=== PATIENT | female | born 1980 | race Caucasian/White ===

== ENCOUNTER → 2023-04-17 | Outpatient (CLI) | payer OTHER ==
[2023-04-17 08:47] LABS: BASOPHILS # (AUTO) 0.02 K/uL (0.00-0.20); BASOPHILS % (AUTO) 0.3 % (0.0-5.0); EOSINOPHILS # (AUTO) 0.12 K/uL (0.00-0.70); EOSINOPHILS % (AUTO) 2.1 % (0.0-8.0); HEMATOCRIT 38.6 % (36-48); IMMATURE GRANULOCYTE ABSOLUTE 0.02 K/uL (0-1); LYMPHOCYTES # (AUTO) 1.8 K/uL (1.0-4.8); LYMPHOCYTES % (AUTO) 31.2 % (21.0-51.0); MEAN CORPUSCULAR HEMOGLOBIN 32.3 pg (27.0-33.0); MEAN CORPUSCULAR HGB CONC 32.9 g/dL (32.0-36.0); MEAN CORPUSCULAR VOLUME 98.2 fL (79-99); MONOCYTES # (AUTO) 0.5 K/uL (0.1-1.0); MONOCYTES % (AUTO) 8.3 % (3.0-13.0); NEUTROPHILS # (AUTO) 3.4 K/uL (1.8-7.7); NEUTROPHILS % (AUTO) 57.8 % (40.0-77.0); PLATELET COUNT (AUTO) 350 K/uL (130-400); RED BLOOD CELL COUNT(AUTO) 3.93 MIL/uL (4.00-5.50); RED CELL DISTRIBUTION WIDTH 12.4 % (11.0-15.5); WHITE BLOOD COUNT (AUTO) 5.8 K/uL (4.8-10.8)
[2023-04-17 09:18] LABS: ALBUMIN 3.9 g/dL (3.5-5.0); BILIRUBIN,TOTAL 0.3 mg/dL (0.2-1.0); CREATININE 0.8 mg/dL (0.5-1.5); TOTAL PROTEIN, SERUM 7.1 g/dL (6.0-8.3)
== END | disposition home or self-care (01) ==
LOC: LAB 08:03
PROVIDERS: ATTEND Internal Medicine
DX: Z13.220 Encounter for screening for lipoid disorders (principal); Z00.00 Encounter for general adult medical examination without abnormal findings; I10 Essential (primary) hypertension
CPT/HCPCS: 36415; 80053; 80061; 85025

== ENCOUNTER → 2023-04-22 | Outpatient (CLI) | payer OTHER | END | disposition home or self-care (01) | LOC: LAB 15:19 | PROVIDERS: ATTEND Internal Medicine | DX: Z01.419 Encounter for gynecological examination (general) (routine) without abnormal findings (principal) | CPT/HCPCS: 88175 ==

== ENCOUNTER → 2023-08-17 | Outpatient (CLI) | payer OTHER | END | disposition home or self-care (01) | LOC: RAH 15:21 | PROVIDERS: ATTEND Internal Medicine | DX: Z12.31 Encounter for screening mammogram for malignant neoplasm of breast (principal) | CPT/HCPCS: 77067 ==

== ENCOUNTER → 2024-04-20 | Outpatient (CLI) | payer OTHER ==
[2024-04-21 08:30] LABS: BASOPHILS # (AUTO) 0.03 K/uL (0.00-0.20); BASOPHILS % (AUTO) 0.5 % (0.0-5.0); EOSINOPHILS # (AUTO) 0.13 K/uL (0.00-0.70); EOSINOPHILS % (AUTO) 2.1 % (0.0-8.0); HEMATOCRIT 38.7 % (36-48); IMMATURE GRANULOCYTE ABSOLUTE 0.01 K/uL (0-1); LYMPHOCYTES # (AUTO) 1.5 K/uL (1.0-4.8); LYMPHOCYTES % (AUTO) 25.2 % (21.0-51.0); MEAN CORPUSCULAR HEMOGLOBIN 32.3 pg (27.0-33.0); MEAN CORPUSCULAR HGB CONC 32.3 g/dL (32.0-36.0); MONOCYTES # (AUTO) 0.5 K/uL (0.1-1.0); MONOCYTES % (AUTO) 7.4 % (3.0-13.0); NEUTROPHILS # (AUTO) 3.9 K/uL (1.8-7.7); NEUTROPHILS % (AUTO) 64.6 % (40.0-77.0); PLATELET COUNT (AUTO) 323 K/uL (130-400); RED BLOOD CELL COUNT(AUTO) 3.87 MIL/uL (4.00-5.50); WHITE BLOOD COUNT (AUTO) 6.1 K/uL (4.8-10.8)
[2024-04-21 08:54] LABS: ALBUMIN 3.7 g/dL (3.5-5.0); BILIRUBIN,TOTAL 0.5 mg/dL (0.2-1.0); CREATININE 0.8 mg/dL (0.5-1.0); HEMOGLOBIN A1C 5.4 % (4.0-6.0); MAGNESIUM 1.7 mg/dL (1.80-2.40); POTASSIUM 4.3 mmol/L (3.5-5.1); THYROID STIMULATING HORMONE 1.54 uIU/mL (0.36-3.74); TOTAL PROTEIN, SERUM 6.7 g/dL (6.0-8.3)
== END | disposition home or self-care (01) ==
LOC: RAH 08:19
PROVIDERS: ATTEND Internal Medicine Cardiovascular Disease
DX: R00.1 Bradycardia, unspecified (principal)
CPT/HCPCS: 36415; 80053; 80061; 83036; 83735; 84436; 84443; 84479; 85025; 93306

== ENCOUNTER → 2024-06-12 | Outpatient (CLI) | payer OTHER ==
[2024-06-12 22:17] VITALS: PULSE 76; RESP 14
[2024-06-12 23:00] VITALS: PULSE 70; RESP 12
[2024-06-12 23:30] VITALS: PULSE 72; RESP 12
[2024-06-13] VITALS (11 sets, daily range): PULSE 58–74; RESP 12–16
== END | disposition home or self-care (01) ==
LOC: SLP 20:35
PROVIDERS: ATTEND Internal Medicine
DX: G47.33 Obstructive sleep apnea (adult) (pediatric) (principal); I49.9 Cardiac arrhythmia, unspecified; E66.01 Morbid (severe) obesity due to excess calories; I10 Essential (primary) hypertension
CPT/HCPCS: 95810

== ENCOUNTER → 2024-07-18 | Outpatient (CLI) | payer OTHER ==
[2024-07-18] VITALS (11 sets, daily range): PULSE 61–76; RESP 5–18
[2024-07-19] VITALS (11 sets, daily range): PULSE 63–73; RESP 9–19
== END | disposition home or self-care (01) ==
LOC: SLP 20:38
PROVIDERS: ATTEND Internal Medicine
DX: G47.33 Obstructive sleep apnea (adult) (pediatric) (principal); I49.9 Cardiac arrhythmia, unspecified; E66.01 Morbid (severe) obesity due to excess calories
CPT/HCPCS: 95811

== ENCOUNTER → 2025-07-17 | Outpatient (CLI) | payer OTHER ==
[2025-07-17 08:36] LABS: IMMATURE GRANULOCYTE ABSOLUTE 0.02 K/uL (0-1); NUCLEATED RED BLOOD CELLS 0.0 % (0.0-0.19); PLATELET COUNT (AUTO) 292 K/uL (130-400); RED BLOOD CELL COUNT(AUTO) 4.15 MIL/uL (4.00-5.50); RED CELL DISTRIBUTION WIDTH 12.9 % (11.0-15.5); WHITE BLOOD COUNT (AUTO) 6.4 K/uL (4.8-10.8)
[2025-07-17 09:03] LABS: ASPARTATE AMINOTRANSFERASE 19.0 U/L (10-37); CREATININE 0.8 mg/dL (0.5-1.0); GLOMERULAR FILTR. RATE CALC 93.0 mL/min (>90); GLUCOSE,RANDOM 107.0 mg/dL (70-105); LDL DIRECT 90.0 mg/dL (0-99); SODIUM SERUM 138.0 mmol/L (136-145); T3 UPTAKE 36.0 % (38-49); TOTAL PROTEIN, SERUM 6.9 g/dL (6.0-8.3); UREA NITROGEN, BLOOD 11.0 mg/dL (7-18)
== END | disposition home or self-care (01) ==
LOC: LAB 10:55
PROVIDERS: ATTEND Internal Medicine
DX: I10 Essential (primary) hypertension (principal); E78.2 Mixed hyperlipidemia; R73.01 Impaired fasting glucose; R79.89 Other specified abnormal findings of blood chemistry
CPT/HCPCS: 36415; 80053; 80061; 82043; 82570; 83036; 84439; 84443; 84479; 85025

== ENCOUNTER → 2025-07-17 | Outpatient (CLI) | payer OTHER ==
--- NOTE | 2025-07-18 02:52 | HMCIMG ---
STUDY: X-RAY OF THE THORACIC SPINE, 2 VIEWS HISTORY: Thoracic spine pain. TECHNIQUE: AP and lateral views of the thoracic spine are submitted for interpretation. COMPARISON: None provided. FINDINGS: Bones and joints: Vertebral body heights are preserved throughout the thoracic spine without evidence of acute compression fracture or destructive osseous lesion. Multilevel endplate osteophytic spurring is present, compatible with degenerative spondylosis. Intervertebral disc spaces are grossly maintained. Overall alignment of the thoracic spine is preserved without significant scoliosis or spondylolisthesis. Soft tissues: The visualized paraspinal soft tissues are unremarkable. No prevertebral soft tissue swelling or radiopaque foreign body is identified. IMPRESSION: * Multilevel thoracic spondylosis with endplate osteophytic spurring. * No radiographic evidence of acute fracture or malalignment. * MRI of the thoracic spine may be considered for further evaluation of symptomatic levels, if clinically indicated. /[place]
--- NOTE | 2025-07-18 02:53 | HMCIMG ---
STUDY: X-RAY OF THE CERVICAL SPINE, 3 VIEWS HISTORY: Cervicalgia. TECHNIQUE: Three views of the cervical spine are submitted for interpretation. COMPARISON: None provided. FINDINGS: Bones and joints: Cervical vertebral body heights are preserved without radiographic evidence of acute compression fracture or destructive osseous lesion. There is straightening/loss of the normal cervical lordosis. Anterior osteophyte formation and reduction of the intervertebral disc height are noted at C6???C7, compatible with degenerative disc disease. Mild anterolisthesis of C2 on C3 and C3 on C4 is present without gross perched facets or malalignment at other levels. The remaining disc spaces are relatively preserved. No definite prevertebral soft tissue swelling is seen. Soft tissues: Visualized prevertebral and paraspinal soft tissues are unremarkable. No radiopaque foreign body is identified. IMPRESSION: * Degenerative cervical spondylosis most prominent at C6???C7 with anterior osteophytes and disc space narrowing. * Mild anterolisthesis of C2 on C3 and C3 on C4 without radiographic evidence of acute fracture. * Loss of normal cervical lordosis, which may reflect muscular spasm or positioning. * MRI of the cervical spine is suggested for further evaluation of the degenerative changes and potential neural element involvement, if clinically indicated. /[place]
--- NOTE | 2025-07-18 15:45 | HMCIMG ---
DIGITAL BILATERAL SCREENING MAMMOGRAM Technique: The digital mammographic examination of both breasts in craniocaudal and mediolateral oblique views along with CAD was obtained. History: This is a 45 years year-old female 0, para0 Ab0. Patient has no family history of breast cancer. Patient has no complaint Reference:Prior mammogram from 08/17/2023 and 04/25/2022 are available.. Breast composition: Breast composition C: The breasts are heterogeneously dense, which may obscure small masses. Finding: The digital mammographic examination of both breasts in craniocaudal and mediolateral oblique view along with CAD demonstrates both breasts to be moderately heterogeneously nodular dense breasts.. There is no evidence of any dendritic mass, cluster microcalcification or architectural distortion. The retromammary fat appears to be normal. IMPRESSION: Due to moderately heterogeneously nodular dense breasts I would recommend a baseline bilateral breast sonogram.. FINAL ASSESSMENT: ACR: BI-RAD -0. Incomplete: need additional imaging evaluation. NOTE: IF A WORK-UP OF THIS PATIENT LEADS TO A BIOPSY, PLEASE FORWARD A COPY OF THE PATHOLOGY REPORT TO OUR OFFICE REQUIRED BY [employer] MAY 31, 1994. A NEGATIVE MAMMOGRAM SHOULD NOT PRECLUDE BIOPSY OF A CLINICALLY PALPABLE SUSPICIOUS MASS, 10% OF BREAST CANCERS ARE MAMMOGRAPHICALLY OCCULT. THIS MAMMOGRAPHY FACILITY IS FULLY ACCREDITED BY THE FOOD AND DRUG ADMINISTRATION (FDA). THANK YOU FOR THIS REFERRAL.
== END | disposition home or self-care (01) ==
LOC: RAH 08:16
PROVIDERS: ATTEND Internal Medicine
DX: Z12.31 Encounter for screening mammogram for malignant neoplasm of breast (principal); R92.333 Mammographic heterogeneous density, bilateral breasts; M47.812 Spondylosis without myelopathy or radiculopathy, cervical region; M43.12 Spondylolisthesis, cervical region; M54.2 Cervicalgia; M25.78 Osteophyte, vertebrae; M48.02 Spinal stenosis, cervical region; M47.814 Spondylosis without myelopathy or radiculopathy, thoracic region
CPT/HCPCS: 72040; 72070; 77067

== ENCOUNTER 2025-08-04 14:49 | Emergency (ER) | payer OTHER ==
[~2025-08-04] VITALS: Ht 162.6 cm; Wt 95.3 kg
[2025-08-04] MEDS ORDERED: GADOTERATE MEGLUMINE 5 MMOL/10 ML VIAL IV ONE (14:55)
[2025-08-04 15:18] LABS: IMMATURE GRANULOCYTE ABSOLUTE 0.03 K/uL (0-1); NUCLEATED RED BLOOD CELLS 0.0 % (0.0-0.19); PLATELET COUNT (AUTO) 279 K/uL (130-400); RED BLOOD CELL COUNT(AUTO) 3.88 MIL/uL (4.00-5.50); RED CELL DISTRIBUTION WIDTH 13.0 % (11.0-15.5); WHITE BLOOD COUNT (AUTO) 7.9 K/uL (4.8-10.8)
[2025-08-04 15:28] LABS: INR 0.98 (0.85-1.15)
[2025-08-04 15:29] LABS: CREATININE 0.8 mg/dL (0.5-1.0); GLOMERULAR FILTR. RATE CALC 93.0 mL/min (>90); GLUCOSE,RANDOM 86.0 mg/dL (70-105); SODIUM SERUM 141.0 mmol/L (136-145); UREA NITROGEN, BLOOD 14.0 mg/dL (7-18)
[2025-08-04 15:34] LABS: CREATINE KINASE, TOTAL 82.0 U/L (21-232); LDL DIRECT 101.0 mg/dL (0-99)
--- NOTE | 2025-08-04 15:39 | HMCIMG ---
CLINICAL INFORMATION Uncoordination COMPARISON None. TECHNIQUE Frontal view chest. FINDINGS Lines and tubes: None Lungs: Clear. Pleura: Unremarkable. No effusion or pneumothorax. Cardiomediastinal Silhouette: Unremarkable. Bones: Normal for age. Soft Tissues: Normal. IMPRESSION No acute cardiopulmonary findings. /[place]
--- NOTE | 2025-08-04 15:39 | HMCIMG ---
CLINICAL INFORMATION Concern for acute stroke. COMPARISON None. TECHNIQUE Volumetric helical CT images of the head without contrast FINDINGS Midline shift: None. Intracranial Hemorrhage: None. Extra axial spaces: Normal. Ventricular system: Normal for age. Basal cisterns: Normal. Cerebral parenchyma: Normal. Cerebellum: Normal. Brainstem: Normal. Skull: Normal. Vascular system: Normal. Paranasal sinuses: Normal. Mastoid air cells: Normal. Visualized Orbits: Normal. Visualized upper cervical spine: Normal. Skull base: Normal. Soft Tissues: Normal. IMPRESSION No acute intracranial findings. If there is persistent clinical concern for acute infarct, recommend brain MR. /[place]
--- NOTE | 2025-08-04 16:06 | ERN ---
General Chief Complaint: Stroke Symptoms Stated Complaint: STROKE LIKE SYMPTOMS Time Seen by MD: 14:55 Source: patient History of Present Illness Initial Comments Patient is a 45-year-old female coming in complaining of right upper extremity uncoordination. Per patient this has been ongoing for several weeks. Patient does has a history of acute on chronic changes to the cervical spine region was pending an MRI. She has not been involved in MVC but states she has had repetitive stress to cervical region which is being investigated for. Allergies: Coded Allergies: No Known Drug Allergies (Unverified Allergy, Unknown, 08/04/25) Past Medical History Past Medical History: Depression Medical History Other: OBSTRUCTIVE SLEEP APNEA, ?THYROID ISSUES Past Surgical History: Other Surgical History Other: ORTHO SURG NIH STROKE SCALE: NIH STROKE SCALE Response (Comments) Value Level of Consciousness Alert 0 Ask patient month and their age Answers both correct 0 Command to open eyes, make fist and let go Obeys both correct 0 Best gaze (horizontal eye movement) Normal 0 Visual Field Testing No Visual Field Loss 0 Facial Paresis Normal / Symmetrical 0 Motor Function - Left Arm Normal 0 Motor Function - Right Arm Normal 0 Motor Function - Left Leg Normal 0 Motor Function - Right Leg Normal 0 Limb Ataxia No Ataxia 0 Sensory-pin prick to arms, legs, trunk and face Normal 0 Best Language (describe picture, name items and read) No Aphasia 0 Dysarthria (read several words) Mild-Mod. Slurring Words 1 Extinction and Inattention Normal 0 Total Results Laboratory and Microbiology Lab and Micro Result Laboratory Tests Test 08/04/25 15:04 08/04/25 15:05 08/04/25 18:08 Whole Blood Glucose 91 MG/DL (70-110) White Blood Count 7.9 K/uL (4.8-10.8) Red Blood Count 3.88 MIL/uL (4.00-5.50) L Hemoglobin 12.8 g/dL (12.0-16.0) Hematocrit 38.4 % (36-48) Mean Corpuscular Volume 99.0 fL (79-99) Mean Corpuscular Hemoglobin 33.0 pg (27.0-33.0) Mean Corpuscular Hemoglobin Concent 33.3 g/dL (32.0-36.0) Red Cell Distribution Width 13.0 % (11.0-15.5) Platelet Count 279 K/uL (130-400) Mean Platelet Volume 8.7 fL (7.5-10.5) Immature Granulocyte % (Auto) 0.4 % (0-1) Neutrophils (%) (Auto) 62.3 % (40.0-77.0) Lymphocytes (%) (Auto) 27.6 % (21.0-51.0) Monocytes (%) (Auto) 7.4 % (3.0-13.0) Eosinophils (%) (Auto) 1.9 % (0.0-8.0) Basophils (%) (Auto) 0.4 % (0.0-5.0) Neutrophils # (Auto) 4.9 K/uL (1.8-7.7) Lymphocytes # (Auto) 2.2 K/uL (1.0-4.8) Monocytes # (Auto) 0.6 K/uL (0.1-1.0) Eosinophils # (Auto) 0.15 K/uL (0.00-0.70) Basophils # (Auto) 0.03 K/uL (0.00-0.20) Absolute Immature Granulocyte (auto 0.03 K/uL (0-1) Nucleated Red Blood Cells 0.0 % (0.0-0.19) Prothrombin Time 10.4 SEC (9.6-11.6) Prothromb Time International Ratio 0.98 (0.85-1.15) Activated Partial Thromboplast Time 26.8 SEC (26.3-35.5) Sodium Level 141 mmol/L (136-145) Potassium Level 4.0 mmol/L (3.5-5.1) Chloride Level 103 mmol/L (101-111) Carbon Dioxide Level 30 mmol/L (21-32) Blood Urea Nitrogen 14 mg/dL (7-18) Creatinine 0.8 mg/dL (0.5-1.0) Glomerular Filtration Rate Calc 93 mL/min (>90) Random Glucose 86 mg/dL (70-105) Total Calcium 8.5 mg/dL (8.5-10.1) Total Creatine Kinase 82 U/L (21-232) Troponin I High Sensitivity 5 ng/L (4-50) LDL Cholesterol 101 mg/dL (0-99) H Urine Color LIGHT-YELLOW (YELLOW) Urine Appearance CLEAR (CLEAR) Urine pH 6.5 (5.0-8.0) Urine Specific [place] 1.024 (1.001-1.031) Urine Protein NEGATIVE mg/dL (NEGATIVE) Urine Glucose (UA) NEGATIVE mg/dL (NEGATIVE) Urine Ketones NEGATIVE mg/dL (NEGATIVE) Urine Occult Blood NEGATIVE (NEGATIVE) Urine Nitrate NEGATIVE (NEGATIVE) Urine Bilirubin NEGATIVE mg/dL (NEGATIVE) Urine Urobilinogen 0.2 mg/dL (0.2-1.0) Urine Leukocyte Esterase NEGATIVE Kris/uL Labs Reviewed?: Yes EKG/XRAY/US/CT/MRI EKG Comment 08/04/2025 time 3:35 p.m. Ventricular rate 79 Sinus rhythm NM [address] wave elevation or depression X-RAY Comment IMAGING REPORT Signed PATIENT: MICHEAL HUNTER MR#: [id number] : 1980 SEX: F AGE: 45 LOCATION: [facility] ORDER 56 STATUS: REG ER [facility] REPORT#: [id number] SERVICE 54 REASON: uncoordination ORDERING PHYSICIAN: KARI PHILIP MD PROCEDURE: CXR1VW - CHEST 1VW CLINICAL INFORMATION Uncoordination COMPARISON None. TECHNIQUE Frontal view chest. FINDINGS Lines and tubes: None Lungs: Clear. Pleura: Unremarkable. No effusion or pneumothorax. Cardiomediastinal Silhouette: Unremarkable. Bones: Normal for age. Soft Tissues: Normal. IMPRESSION No acute cardiopulmonary findings. /[place] DICTATED BY: CHASTITY ALLAN MD DATE: 08/04/251638 ELECTRONICALLY SIGNED BY: CHASTITY ALLAN MD DATE: 08/04/251638 CT Scan Comment [id number] [address] IMAGING REPORT Signed PATIENT: MICHEAL HUNTER MR#: [id number] : 1980 SEX: F AGE: 45 LOCATION: [facility] ORDER 56 STATUS: REG ER REPORT#: [id number] SERVICE 1455 REASON: right arm uncoordination ORDERING PHYSICIAN: KARI PHILIP MD PROCEDURE: HEAD WO - CT HEAD/BRAIN W/O CONTRAST CLINICAL INFORMATION Concern for acute stroke. COMPARISON None. TECHNIQUE Volumetric helical CT images of the head without contrast FINDINGS Midline shift: None. Intracranial Hemorrhage: None. Extra axial spaces: Normal. Ventricular system: Normal for age. Basal cisterns: Normal. Cerebral parenchyma: Normal. Cerebellum: Normal. Brainstem: Normal. Skull: Normal. Vascular system: Normal. Paranasal sinuses: Normal. Mastoid air cells: Normal. Visualized Orbits: Normal. Visualized upper cervical spine: Normal. Skull base: Normal. Soft Tissues: Normal. IMPRESSION No acute intracranial findings. If there is persistent clinical concern for acute infarct, recommend brain MR. /[place] DICTATED BY: CHASTITY ALLAN MD DATE: 08/04/251638 ELECTRONICALLY SIGNED BY: CHASTITY ALLAN MD DATE: 08/04/251638 MDM MDM: Differential diagnosis: Rationale: Tests considered and ordered secondary to shared decision making include: Previous outside records reviewed: Old ER visits. Risk of complication and/or morbidity or mortality of patient management: None Medications-Per medication reconciliation Need for hospitalization: Patient does not meet criteria for hospitalization. Need for emergency major/minor surgery: No There are no social concerns with this patient. Prescription drug management Prescriptions will include symptomatic care Patient's prior external medical records from other ER visits were reviewed by me as indicated. Prior testing and results from previous visits were reviewed. Prior tests were taken into account with medical decision making and resource utilization, independent historian/historians were used to obtain complete medical history. I independently interpreted the test that were performed, results were reviewed by me and considered findings on radiology if ordered. Medical management and examination interpretation discussions were had by me with other qualified healthcare professionals as indicated for the patient's care. ED Course Orders Procedure Category Date Status Time Cbc With Differential LAB 08/04/25 Complete 14:55 Prothrombin Time With LAB 08/04/25 Complete INR 14:55 Partial LAB 08/04/25 Complete Thromboplastin Time 14:55 Ct Head/Brain W/O CT 08/04/25 Resulted Contrast 14:55 Chest 1vw RAD 08/04/25 Resulted 14:55 12 Lead Ekg Tracing- EKG 08/04/25 Logged Technical 14:55 Creatine Kinase, Total LAB 08/04/25 Complete 14:55 Ldl Direct LAB 08/04/25 Complete 14:55 Troponin I High LAB 08/04/25 Complete Sensitivity 14:55 Urinalysis Profile LAB 08/04/25 Complete 14:55 Bedside Glucose CPOE 08/04/25 Transmitted Fingerstick 14:55 Basic Metabolic Panel LAB 08/04/25 Complete 14:55 Mr Brain Wo Con MRI 08/04/25 Resulted 16:21 Mr Spinal Canal, Cerv MRI 08/04/25 Resulted W/Wo Con 16:21 Vital Signs Date Time Temp Pulse Resp B/P (MAP) Pulse Ox O2 Delivery O2 Flow Rate FiO2 08/04/25 17:46 98.2 86 17 137/96 96 Room Air* 0 21 08/04/25 16:45 98.2 83 17 126/77 96 Room Air* 0 21 08/04/25 14:51 98.2 83 17 124/72 96 Room Air 0 08/04/25 14:50 98.2 83 17 124/72 99 Room Air* 0 21 2010: Patient is seen and evaluated by me. Signed out to me by name physician, Dr. Philip. 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 Also had dysarthria and generalized weakness. Stroke alert was called and stat MRIs were obtained. MRIs are negative. I spoke to the patient about the findings and the possible need for further workup in the hospital by neurology. She states that she feels comfortable going home at this time. She will sign out AMA. DX & DISP Disposition: AMA Departure Impression: Primary Impression: Left against medical advice Additional Impressions: Right arm weakness, TIA (transient ischemic attack) Condition: Stable Referrals: MOISÉS RUEDA MD (PCP) KARI PHILIP MD Aug 04, 2025 16:06 ELODIA ANGLIN MD Aug 04, 2025 20:13
--- NOTE | 2025-08-04 18:18 | HMCIMG ---
EXAM: MR Brain Without IV contrast. CLINICAL HISTORY: The patient presents with right upper extremity weakness. TECHNIQUE: Multisequence, multiplanar magnetic resonance images acquired of the brain. CONTRAST: None. COMPARISON: Prior CT head dated August 04, 2025. FINDINGS: BRAIN: No restricted diffusion to indicate acute infarction. No intracranial mass or hemorrhage. No midline shift or extra-axial fluid collection. No sulcal effacement. No cerebellar tonsillar ectopia. The central arterial and venous flow voids are patent. VENTRICLES: No hydrocephalus. ORBITS: The orbits are normal. SINUSES AND MASTOIDS: The sinuses and mastoid air cells are clear. BONES: No focal osseous lesion. IMPRESSION: Unremarkable brain MRI without acute abnormality. /[place]
[2025-08-04 18:41] LABS: APPEARANCE,URINE CLEAR (CLEAR); GLUCOSE, URINE (UA) NEGATIVE (NEGATIVE); LEUKOCYTE ESTERASE ,URINE NEGATIVE Leu/uL (NEGATIVE); NITRATE,URINE NEGATIVE (NEGATIVE); OCCULT BLOOD,URINE NEGATIVE (NEGATIVE)
[2025-08-04 18:43] LABS: ADD UA MICROSCOPIC NO
--- NOTE | 2025-08-04 19:39 | HMCIMG ---
EXAM: MR Cervical Spine Without and With Intravenous Contrast. CLINICAL HISTORY: Right-sided motor changes. TECHNIQUE: Magnetic resonance images of the cervical spine in multiple planes. CONTRAST: Yes. COMPARISON: Radiograph dated 07/17/25. FINDINGS: The imaged posterior fossa is unremarkable. The craniocervical junction is intact. No acute fracture. Reversal of the cervical lordosis, likely paraspinal muscle spasm. Mild multilevel spondylosis is evident by marginal osteophytes and facet joint arthropathy. Moderate degenerative disc height reduction at the C6-C7 level. Normal vertebral body and remaining disc heights. Modic type II changes in the contiguous endplates at the C6-C7 level. The cervical cord is in an anatomic location. No abnormal signal involves the cord. No extra-axial masses. The surrounding soft tissues are unremarkable. Level by level disease is present as follows: C1-C2: No osteoarthritis. C2-C3: 2 mm uncovertebral hypertrophy and facet joint arthropathy causing mild to moderate right foraminal narrowing. No disc bulge or herniation. No lateral recess or spinal canal stenosis. C3-C4: 2 mm left uncovertebral hypertrophy and facet joint arthropathy causing mild left foraminal narrowing. No disc bulge or herniation. No lateral recess or spinal canal stenosis. C4-C5: 2 mm right predominant disc osteophyte complex bulge causing mild indentation on the anterior thecal sac. No neural foraminal or lateral recess stenosis. C5-C6: 2 mm left predominant disc osteophyte complex bulge causing mild indentation on the anterior thecal sac. No neural foraminal or lateral recess stenosis. C6-C7: 2 mm disc osteophyte complex bulge causing mild indentation on the anterior thecal sac and mild bilateral foraminal narrowing. No lateral recess stenosis. C7-T1: No disc bulge or herniation. No neural foraminal, lateral recess or spinal canal stenosis. IMPRESSION: Redemonstrated reversal of the cervical lordosis, likely paraspinal muscle spasm. Redemonstrated mild multilevel spondylosis. Moderate degenerative disc height reduction at the C6-C7 level. Modic type II changes in the contiguous endplates at the C6-C7 level. Mild to moderate right foraminal narrowing at the C2-C3 level. Mild left foraminal narrowing at the C3-C4 level. Mild indentation on the anterior thecal sac at the C4-C5 and C5-C6 levels. Mild indentation on the anterior thecal sac and mild bilateral foraminal narrowing at the C6-C7 level. /[place]
[2025-08-04 20:19] VITALS: BP 135/87; PULSE 83; RESP 18; TEMP 98.6; O2SAT 99
--- NOTE | 2025-08-04 20:19 | NUR ---
PATIENT DECIDES TO LEAVE AMA, AMA FORM SIGNED. DR ANGLIN AWARE
--- NOTE | 2025-08-05 04:54 | EKG ---
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
== END 2025-08-04 20:19 | disposition left against medical advice (07) ==
LOC: EDH 14:49
DX: G45.9 Transient cerebral ischemic attack, unspecified (principal); R53.1 Weakness; Z53.29 Procedure and treatment not carried out because of patient's decision for other reasons
CPT/HCPCS: 70551; 99285; 70450; 71045; 82550; 83721; 84484; 80048; 85025; 85610; 85730; 82948; 81003; 36415; 72156; 93005; A9575

== ENCOUNTER → 2025-08-11 | Outpatient (CLI) | payer OTHER ==
--- NOTE | 2025-08-13 20:43 | HMCIMG ---
EXAMINATION: MRI of the thoracic spine without contrast. CLINICAL HISTORY: Radiculopathy. COMPARISON: None. TECHNIQUE: Multiplanar, multisequence MR images of the thoracic spine are submitted. FINDINGS: The thoracic alignment is within normal limits. There is no acute fracture or pathologic marrow signal abnormality within the thoracic spine. The thoracic cord is normal in size and signal. There is no epidural mass or fluid collection. The paraspinal musculature and soft tissues are within normal limits. Conus ends at the upper endplate of L1. Focal dorsal subcutaneous edema in the thoracolumbar region. No discrete drainable collection is seen. FINDINGS BY LEVEL: T1-T2: There is no disc bulge or herniation. There is no significant central canal stenosis or neural foraminal narrowing. Facet joints are preserved. T2-T3: There is no disc bulge or herniation. There is no significant central canal stenosis or neural foraminal narrowing. Facet joints are preserved. T3-T4: There is no disc bulge or herniation. There is no significant central canal stenosis or neural foraminal narrowing. Facet joints are preserved. T4-T5: There is no disc bulge or herniation. There is no significant central canal stenosis or neural foraminal narrowing. Facet joints are preserved. T5-T6: There is no disc bulge or herniation. There is no significant central canal stenosis or neural foraminal narrowing. Facet joints are preserved. T6-T7: There is no disc bulge or herniation. There is no significant central canal stenosis or neural foraminal narrowing. Facet joints are preserved. T7-T8: There is no disc bulge or herniation. There is no significant central canal stenosis or neural foraminal narrowing. Facet joints are preserved. T8-T9: There is no disc bulge or herniation. There is no significant central canal stenosis or neural foraminal narrowing. Facet joints are preserved. T9-T10: There is no disc bulge or herniation. There is no significant central canal stenosis or neural foraminal narrowing. Facet joints are preserved. T10-T11: There is no disc bulge or herniation. There is no significant central canal stenosis or neural foraminal narrowing. Facet joints are preserved. T11-T12: There is no disc bulge or herniation. There is no significant central canal stenosis or neural foraminal narrowing. Facet joints are preserved. T12-L1: There is no disc bulge or herniation. There is no significant central canal stenosis or neural foraminal narrowing. Facet joints are preserved. IMPRESSION:No acute findings in the thoracic spine. Focal dorsal subcutaneous edema in the thoracolumbar region. No discrete drainable collection is seen. /[place]
== END | disposition home or self-care (01) ==
LOC: RAH 10:50
PROVIDERS: ATTEND Internal Medicine
DX: M47.24 Other spondylosis with radiculopathy, thoracic region (principal); M47.812 Spondylosis without myelopathy or radiculopathy, cervical region; M99.79 Connective tissue and disc stenosis of intervertebral foramina of abdomen and other regions; R60.0 Localized edema; G95.19 Other vascular myelopathies
CPT/HCPCS: 36415; 72146; 82306; 82746; 84155; 84165; 85651; 86038; 86141; 86431

== ENCOUNTER → 2025-08-11 | Outpatient (CLI) | payer OTHER ==
[2025-08-12 07:14] LABS: RHEUMATOID ARTHRITIS FACTOR 10.1 IU/mL (<14.0)
== END | disposition home or self-care (01) ==
LOC: LAB 10:55
PROVIDERS: ATTEND Physical Medicine & Rehabilitation
DX: M35.9 Systemic involvement of connective tissue, unspecified (principal)
CPT/HCPCS: 36415; 82306; 82746; 84155; 84165; 85651; 86038; 86141; 86431

== ENCOUNTER → 2025-08-17 | Outpatient (CLI) | payer OTHER ==
[2025-08-17 13:11] LABS: CREATINE KINASE, TOTAL 258 U/L (21-232)
== END | disposition home or self-care (01) ==
LOC: LAB 12:07
PROVIDERS: ATTEND Psychiatry & Neurology Neurology
DX: R26.1 Paralytic gait (principal); R47.81 Slurred speech; R29.2 Abnormal reflex
CPT/HCPCS: 36415; 82550; 82607; 84238; 86235; 86617